=== PATIENT | female | born 1950 | race Caucasian/White ===

== ENCOUNTER → 2018-09-15 | Outpatient (CLI) | payer MEDICARE, OTHER ==
[2018-09-15 17:49] LABS: CREATININE FOR GFR 0.64 MG/DL (0.55-1.30); GLOMERULAR FILTRATION RATE > 60.0 (>45)
[2018-09-15 17:49] LABS: BLOOD UREA NITROGEN 9 MG/DL (7-18)
== END ==
LOC: M LAB 16:55
DX: L03.114 Cellulitis of left upper limb (principal)
CPT/HCPCS: 82565

== ENCOUNTER 2018-09-16 14:42 | Emergency (ER) | payer MEDICARE, OTHER ==
[2018-09-16] MEDS: cefTRIAXone SOD 1 GM VIAL (J0696) IM (16:18)
== END 2018-09-16 16:58 | disposition home or self-care (01) ==
LOC: M ED 14:42
DX: L03.113 Cellulitis of right upper limb (principal); Z79.899 Other long term (current) drug therapy; Z88.2 Allergy status to sulfonamides; Z88.5 Allergy status to narcotic agent; Z88.8 Allergy status to other drugs, medicaments and biological substances
CPT/HCPCS: J0696

== ENCOUNTER 2018-09-17 14:57 | Emergency (ER) | payer MEDICARE, OTHER ==
[2018-09-17] MEDS ORDERED: LIDOCAINE 1% MDV 20ML VIAL As Ordered (15:53)
[2018-09-17] MEDS: cefTRIAXone SOD 1 GM VIAL (J0696) IM (16:00)
[2018-09-17] MEDS: LIDOCAINE 1% MDV 20ML VIAL IM (16:01)
== END 2018-09-17 16:18 | disposition home or self-care (01) ==
LOC: M ED 14:57
DX: L03.114 Cellulitis of left upper limb (principal); J45.909 Unspecified asthma, uncomplicated; Z88.5 Allergy status to narcotic agent; Z88.2 Allergy status to sulfonamides; Z88.8 Allergy status to other drugs, medicaments and biological substances; Z98.890 Other specified postprocedural states; Z79.899 Other long term (current) drug therapy; Z79.2 Long term (current) use of antibiotics; Z86.2 Personal history of diseases of the blood and blood-forming organs and certain disorders involving the immune mechanism
CPT/HCPCS: J0696

== ENCOUNTER 2018-09-18 14:39 | Emergency (ER) | payer MEDICARE, OTHER ==
[2018-09-18] MEDS ORDERED: LIDOCAINE 1% MDV 20ML VIAL As Ordered (15:00)
[2018-09-18] MEDS: cefTRIAXone SOD 1 GM VIAL (J0696) IM (15:08)
[2018-09-18] MEDS: LIDOCAINE 1% MDV 20ML VIAL IM (15:08)
== END 2018-09-18 15:17 | disposition home or self-care (01) ==
LOC: M ED 14:39
DX: L03.114 Cellulitis of left upper limb (principal); Z23 Encounter for immunization; Z79.899 Other long term (current) drug therapy; Z88.2 Allergy status to sulfonamides; Z88.5 Allergy status to narcotic agent; Z88.8 Allergy status to other drugs, medicaments and biological substances
CPT/HCPCS: J0696

== ENCOUNTER → 2019-07-06 | Outpatient (REF) | payer MEDICARE, OTHER ==
[~2019-07-06] MED LIST: ACET65TA OR; CALCTAB93 PO; CLINDAMYCIN PO; GLUC500T3 OR; Gleevec PO; KEFL500C17 PO; MAGNESIUM SUPPLEMENT PO; MINERAL SUPPLEMENT PO; MULTIVIT PO; NEXI20CA OR; PROTPAK PO; [UNRECOGNIZED DRUG - CODE] PO; [UNRECOGNIZED DRUG - CODE] PO
[2019-07-13 00:07] LABS: HPV HYBRID CAPTURE II Negative (Negative)
== END ==
LOC: M LAB REF 11:20
PROVIDERS: ATTEND Obstetrics & Gynecology
DX: Z12.4 Encounter for screening for malignant neoplasm of cervix (principal)
CPT/HCPCS: 87624; G0123